=== PATIENT | female | born 1975 | race Caucasian/White ===

== ENCOUNTER → 2018-10-13 14:36 | Outpatient (POV) | payer BC, SELFPAY | PROVIDERS: Visit Provider Nurse Practitioner Acute Care | DX: Z00.00 Encounter for general adult medical examination without abnormal findings (principal) ==

== ENCOUNTER 2020-11-17 12:07 | Emergency (ER) | payer BC, SELFPAY ==
[2020-11-17 12:11] VITALS: BP 147/84; PULSE 96; RESP 16; TEMP 37.2; O2SAT 97; BMI 40.2
--- NOTE | 2020-11-17 12:32 | HMH.EDUTC ---
[facility] [place] Clinical Impression: Exposure to COVID-19 virus Sinusitis Qualifiers: Sinusitis location: unspecified location Chronicity: acute Recurrence: non-recurrent Qualified Code(s): J01.90 - Acute sinusitis, unspecified Disposition: Home, Self-Care Condition on Discharge: Good Instructions: Sinusitis, DI for Sinusitis, Preventing the Spread of Coronavirus Discharge Instructions Additional Instructions: Drink plenty of fluids. Take tylenol or ibuprofen for pain or fever. Take the medications as directed. Follow up with your regular doctor. GO TO THE ER FOR ANY WORSENING SYMPTOMS Prescriptions: Amoxicillin/Potassium Clav [Augmentin 875-125 Tablet] 1 tab PO Q12H 10 Days #20 tab Transmission Status: Received by [id number] predniSONE [Prednisone 20mg Tab] 20 mg PO BID 4 Days #8 tab Transmission Status: Received by [id number] Referrals: Brigitte Jalloh [Primary Care Provider] - Time of Disposition: 12:46 Medical Decision Making - Medical Records Medical records reviewed: No: I reviewed the patient's medical records. - Chris Inquiry Pt receiving controlled substance: No Vital Signs: 11/17/20 12:11 11/17/20 12:50 Temperature 98.9 F 98.2 F Temperature Source Oral Oral Pulse Rate 87 Pulse Rate [Right] 96 H Respiratory Rate 16 16 Blood Pressure 144/84 H Blood Pressure [Right Arm] 147/84 H Blood Pressure Mean [Right Arm] 105 Blood Pressure Source Automatic Cuff Blood Pressure Source [Right Arm] Automatic Cuff Blood Pressure Position Sitting Blood Pressure Position [Right Arm] Sitting 02 Sat by Pulse Oximetry 97 Oxygen Delivery Method Room Air Room Air Orders (Tests/Meds): ORDERS Category Date Time Status Covid-19 Nasal PCR ([facility]) Routine Lab 11/17/20 12:15 Received [facility] [place] - General Stated complaint: sinus pressure Time Seen by Provider: 11/17/20 12:32 Mode of Arrival: Ambulatory Source of Information: Patient Limitations: No Limitations Description of Symptoms (Recalled from Triage Doc. by RN): pt c/o sinus pressure and not feeling well for the past two dayts HEENT Symptoms (Recalled from RN notes): No Resp Symptoms (Recalled from RN notes): No Skin Symptoms (Recalled from RN notes): No MS Symptoms (Recalled from RN notes): No Functional Status (Recalled from RN notes): na - History of Present Illness Provider Complaint: She states that for the past 2 days she has had sinus congestion. She has also not felt well. She denies any fever or chills. - Related Data Previous Rx's Medication Instructions Recorded Amoxicillin/Potassium Clav 1 tab PO Q12H 10 Days #20 tab 11/17/20 [Augmentin 875-125 Tablet] predniSONE [Prednisone 20mg 20 mg PO BID 4 Days #8 tab 11/17/20 Tab] Allergies Allergy/AdvReac Type Severity Reaction Status Date / Time loratadine [From Claritin-D] Allergy Intermediate Hives Verified 11/17/20 12:17 pseudoephedrine Allergy Intermediate Hives Verified 11/17/20 12:17 [From Claritin-D] cephalexin [From Keflex] Allergy Mild Vomiting Verified 11/17/20 12:17 morphine Allergy Mild Nausea Verified 11/17/20 12:17 - Worker's Comp Is this a Worker's Comp case?: No [facility] History - Hepatitis A Screen Drug use history?: No High risk sexual behaviors?: No History of sexually transmitted infection?: No Currently employed?: No Childcare worker?: No Do you have indoor plumbing?: Yes Do you have electricity?: Yes Attestation statement:: This patient has been screened for Hepatitis A risk factors. I have reviewed the patient's past medical history: Yes Medical History: Denies:: Diabetes Mellitus Type 1, Diabetes Mellitus Type 2, Internal Pacemaker, Lung Disease, Seizures Other Medical History: Reports: Other (Morbid Obesity) Other Surgeries: Yes: Appendectomy, , Hysterectomy-Partial, Other (Cervical Fusion). No: Pacemaker Amputation: No Fractures: No - Social History Smoking Status:
[2020-11-17 12:50] VITALS: BP 144/84; PULSE 87; RESP 16; TEMP 36.8; O2SAT 98
--- NOTE | 2020-11-17 17:24 | PC.NURSE ---
patient notified of positive covid results
== END 2020-11-17 12:51 | disposition home or self-care (01) ==
PROVIDERS: Emergency Provider Nurse Practitioner Family; PCP Family Medicine Addiction Medicine
DX: U07.1 COVID-19 (principal); J01.90 Acute sinusitis, unspecified
CPT/HCPCS: 99202; G0463; U0003

== ENCOUNTER 2021-10-30 12:18 | Emergency (ER) | payer BC, SELFPAY ==
[2021-10-30 12:20] VITALS: BP 131/108; PULSE 87; RESP 18; TEMP 36.8; O2SAT 97; BMI 38.0
--- NOTE | 2021-10-30 12:36 | HMH.EDUTC ---
[facility] [place] Impression: Sinusitis Qualifiers: Sinusitis location: unspecified location Chronicity: unspecified Qualified Code(s): J32.9 - Chronic sinusitis, unspecified Disposition: Home, Self-Care Condition on Discharge: Good Instructions: Sinusitis, DI for Sinusitis, Amoxicillin and Clavulanic Acid Additional Instructions: *Monitor Temp, Over the counter Motrin or Tylenol as directed/as needed Tylenol every 4 hours and Motrin every 6 hours (as long as your family doctor has told you that you can take it) for fever or pain. and straight to ER if unable to lower temp less than 101.0 after medication given *Warm salt water gargles may help to soothe the throat *Throat Lozenges *Warm fluids like tea with honey may help to soothe the throat *Sleep elevated *Humidifier/Vaporizer Monitor blood pressure if you continue to have elevated Blood pressure follow up with your Family Doctor Follow up IMMEDIATELY for new or worsening symptoms or no Noticeable improvement over the next 48-72 hours. 911 for difficulty breathing or swallowing You were tested for today for COVID19 your test result should be back in the next 24-72 hours, you may check your results on the [facility] If you have trouble logging on you may call support If you are positive someone from the Hospital will be calling you Make sure to take your Vitamins Vit. C Vit D and Zinc if you can take them Prescriptions: Amoxicillin/Potassium Clav [Augmentin 875-125 Tablet] 1 tab PO Q12H 10 Days #20 tab Transmission Status: Pending to [id number] predniSONE [Prednisone 20mg Tab] 20 mg PO BID 5 Days #10 tab Transmission Status: Pending to [id number] Referrals: Provider,Referral, [Primary Care Provider] - As needed Forms: Work/School Release Time of Disposition: 12:41 Medical Decision Making - Chris Inquiry Pt receiving controlled substance: No Chris was queried for this patient: No Vital Signs: 10/30/21 12:20 Temperature 98.3 F Temperature Source Oral Pulse Rate [Right Brachial] 87 Respiratory Rate 18 Blood Pressure [Right Arm] 131/108 H Blood Pressure Mean [Right Arm] 115 Blood Pressure Source [Right Arm] Automatic Cuff Blood Pressure Position [Right Arm] Sitting 02 Sat by Pulse Oximetry 97 Oxygen Delivery Method Room Air Medical Decision Narrative: Patient states that she is allergic to Cephalexin but has taken Augmentin in the past without complications or reactions [facility] [place] - General Stated complaint: sinus infection Time Seen by Provider: 10/30/21 12:36 Mode of Arrival: Ambulatory Source of Information: Patient Limitations: No Limitations Description of Symptoms (Recalled from Triage Doc. by RN): PATIENT C/O SINUS PRESSUR AND DRAINAGE, HEADACHE, AND NAUSEA HEENT Symptoms (Recalled from RN notes): Yes Resp Symptoms (Recalled from RN notes): No Skin Symptoms (Recalled from RN notes): No MS Symptoms (Recalled from RN notes): No Functional Status (Recalled from RN notes): WNL - History of Present Illness Provider Complaint: Patient states that she has been having sinus pain and pressure with headache States that even her teeth hurts from the pressure States that she feels like she has a sinus infection again so she came in to get checked - Related Data Previous Rx's Medication Instructions Recorded Amoxicillin/Potassium Clav 1 tab PO Q12H 10 Days #20 tab 10/30/21 [Augmentin 875-125 Tablet] predniSONE [Prednisone 20mg 20 mg PO BID 5 Days #10 tab 10/30/21 Tab] Allergies Allergy/AdvReac Type Severity Reaction Status Date / Time loratadine [From Claritin-D] Allergy Intermediate Hives Verified 11/17/20 12:17 pseudoephedrine Allergy Intermediate Hives Verified 11/17/20 12:17 [From Claritin-D] cephalexin [From Keflex] Allergy Mild Vomiting Verified 11/17/20 12:17 morphine Allergy Mild Nausea Verified 11/17/20 12:17 - Worker's Comp Is this a Worker's Comp case?:
[2021-10-30 12:40] VITALS: BP 121/93
[2021-10-30 12:59] VITALS: BP 121/93; PULSE 87; RESP 18; TEMP 36.8; O2SAT 97
== END 2021-10-30 13:00 | disposition home or self-care (01) ==
PROVIDERS: Emergency Provider Nurse Practitioner
DX: U07.1 COVID-19 (principal); J32.9 Chronic sinusitis, unspecified
CPT/HCPCS: 99203; C9803; G0463; U0003; U0005

== ENCOUNTER 2024-05-25 17:01 | Emergency (ER) | payer BC, SELFPAY ==
--- NOTE | 2024-05-25 17:32 | HMH.EDGENADL ---
Discharge Plan Disposition Patient Disposition: Home, Self-Care Condition: Good Prescriptions Prescriptions: No Action prednisone 20 MG tablet 20 mg PO BID 5 Days Qty: 10 0RF amoxicillin-pot clavulanate 1 EACH tablet 1 tab PO Q12H 10 Days Qty: 20 0RF Referrals Follow up/Referrals: Shanique Kay [Primary Care Provider] - See instructions Activity Restrictions/Add. Instructions Additional Instructions/Restrictions: Hip with your PCP for any worsening signs or symptoms or return to the emergency department as needed. I do recommend that you follow-up with your PCP in 1 week for recheck of all of your baseline labs. Clinical Impressions Clinical Impression: Headache, migraine Qualifiers: Migraine type: migraine (< 15 days per month) without aura Status migrainosus presence: without status migrainosus Intractability: not intractable Qualified Code(s): G43.009 - Migraine without aura, not intractable, without status migrainosus Instructions Patient Instructions: DI for Migraine Print Language Print Language: Kyrgyz Discharge ED Provider: Steffany Berry General Adult HPI General Chief complaint: Headache Stated complaint: Migraine with vomiting Time Seen by Provider: 05/25/24 17:32 History of Present Illness HPI narrative: And hasPatient presents for evaluation of a migraine headache. Patient has a past medical history of frequent monthly headaches however she had a total abdominal hysterectomy for the most part headache free since. However patient recently has been diagnosed with cholelithiasis without cholecystitis and was seen in outside ER yesterday For right upper quadrant abdominal pain and prescribed hydrocodone. She denies any abdominal pain today but awoke with a right-sided migraine but she is feeling it everywhere. She has photophobia phonophobia. 2007 Related Data Previous Rx's ?Medication ?Instructions ?Recorded amoxicillin 875 mg-potassium 1 tab PO Q12H 10 days #20 tabs 10/30/21 clavulanate 125 mg tablet prednisone 20 mg tablet 20 mg PO BID 5 days #10 tabs 10/30/21 Allergies Allergy/AdvReac Type Severity Reaction Status Date / Time loratadine [From Claritin-D] Allergy Intermediate Hives Verified 11/17/20 12:17 pseudoephedrine Allergy Intermediate Hives Verified 11/17/20 12:17 [From Claritin-D] cephalexin [From Keflex] Allergy Mild Vomiting Verified 11/17/20 12:17 morphine Allergy Mild Nausea Verified 11/17/20 12:17 [facility] Disclaimer: The information contained in this section may have been updated after the patient was seen, as this information can be updated by other users. Social History Smoking Status: Never smoker alcohol intake: never current occupational status: other Travel in the last 8 weeks: None caffeine: Yes ROS Obtained: Yes Systems reviewed as appropriate & no additional complaints except as documented Physical Exam General General appearance: alert and in no apparent distress Head Head exam: atraumatic and normal inspection Eye Eye exam: Present normal appearance, PERRL and EOMI; Absent nystagmus ENT ENT exam: Present normal exam, normal oropharynx, mucous membranes moist and TM's normal bilaterally Neck Neck exam: Present normal inspection and full ROM; Absent tenderness or lymphadenopathy Respiratory Respiratory exam: Present normal lung sounds bilaterally Cardiovascular Cardiovascular exam: Present regular rate and normal rhythm Neurological Exam Neurological exam: Present alert, oriented X3, CN II-XII intact and normal gait; Absent motor sensory deficit Medical Decision Making Medical Records Medical records reviewed: Yes I reviewed the patient's medical records. Chris Inquiry Pt receiving controlled substance: No Vital Signs: 05/25/24 17:38 05/25/24 18:00 05/25/24 18:37 Temperature 98.0 F Temperature Source Oral Pulse Rate 93 H 60 Pulse Rate [Right] 89 Respiratory Rate 19 Blood Pressure 149/94 H 13
[2024-05-25 17:38] VITALS: BP 149/94; PULSE 93; O2SAT 100
[2024-05-25 18:00] VITALS: BP 149/92; PULSE 89; RESP 19; TEMP 36.7; O2SAT 99; BMI 38.4
--- NOTE | 2024-05-25 18:30 | PC.NURSE ---
pt began to dry heave while I was pushing ordered medications. Robson aTylor PA-C was notified of this and he ordered phenergan. This was given. Pt given another warm blanket for comfort.
[2024-05-25 18:37] VITALS: BP 138/97; PULSE 60; O2SAT 98
[2024-05-25 19:00] VITALS: BP 126/89; PULSE 64; RESP 18; O2SAT 100
[2024-05-25 19:28] VITALS: BP 126/89; PULSE 68; RESP 18; TEMP 36.6; O2SAT 100
== END 2024-05-25 19:36 | disposition home or self-care (01) ==
LOC: UTC 17:04 → ER 17:26
PROVIDERS: Emergency Provider Emergency Medicine; PCP Family Medicine
DX: G43.009 Migraine without aura, not intractable, without status migrainosus (principal); R11.2 Nausea with vomiting, unspecified
CPT/HCPCS: 96361; 96374; 96375; 99284; J0131; J1100; J1200; J2550; J2765; J7120